=== PATIENT | male | born 1985 | race Hispanic/Latino ===

== ENCOUNTER 2025-08-05 13:01 | Emergency (ER) | payer SELFPAY ==
[2025-08-05 13:03] VITALS: BP 151/96
[2025-08-05 13:19] LABS: Hematocrit 45.4 % (39.0-52.0); Hemoglobin 15.5 g/dL (13.0-18.0); Mean Corp Hgb Conc. 34.1 g/dL (33.0-37.0); Mean Corpuscular Volume 81.1 fL (80.0-94.0); Nucleated Red Blood Cells % 0 % (-); Platelet Count 248 10^3/uL (130-400); Red Cell Dist. Width 14.2 % (11.5-14.5)
[2025-08-05 13:27] LABS: Urine Character Clear (Clear)
[2025-08-05 13:41] LABS: ALT (SGPT) 123 U/L (0-50); AST (SGOT) 62 U/L (17-59); Albumin 4.6 g/dl (3.5-5.0); Alkaline Phosphatase 112 U/L (38-126); Blood Urea Nitrogen 11 mg/dl (9-20); Calcium 8.8 mg/dl (8.4-10.2); Carbon Dioxide 24 mmol/L (22-30); Chloride 110 mmol/L (98-107); Glucose 125 mg/dl (70-99); Lipase 53 U/L (23-300); Potassium 3.9 mmol/L (3.5-5.1); Sodium 140 mmol/L (135-145); Total Protein 7.8 g/dl (6.3-8.2); eGFR > 60.00
[2025-08-05] MEDS: NSS 1000 IV (13:55)
[2025-08-05] MEDS: TORADOL 15 MG IV (13:56)
[2025-08-05 15:55] VITALS: BP 141/86
--- NOTE | 2025-08-05 17:04 | ED.GENMED ---
History of Present Illness
General
Chief Complaint: Abdominal Pain
Time Seen by Provider: 08/05/25 13:40
History of Present Illness
History of Present Illness:
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 Pain is constant, colicky, worsening since onset. No fevers or chills.
No history of abdominal surgery. Denies any lower urinary tract voiding symptoms
Past History
Past History
ED Past Medical History: None
ED Past Surgical History: None
Social History
Tobacco: Non-smoker
Alcohol: Occasional
Drug: None
Personal:
Living: with family
Employment: Employed
Family History
Family History: Other (Noncontributory)
Review of Systems
Review of Systems
Allergies reviewed?: Yes
All Other Systems: ROS reviewed and negative except as documented in HPI and ROS
Phy Exam
Physical Exam
Physical Exam:
GEN: Well appearing, NAD, WDWN
HEENT: Oral mucosa moist, no scleral icterus
Cardiac: Regular rate and rhythm, no murmurs
Lung: No respiratory distress, no tachypnea
Abdomen: Soft, focal tenderness to the right lower quadrant, no epigastric tenderness, no rigidity
MSK: No gross deformity or injuries
Skin: Good color, no pallor or jaundice, no rashes
Neuro: AO x3, moves all extremities freely
Psych: Calm, cooperative
Course
Orders/Labs/Results
Orders:
Orders
08/05/25 13:12
CMP [Comprehensive Metabolic Panel] Urgent
Complete Blood Count/With Diff Urgent
Lipase Urgent
Urinalysis Reflex To Culture Urgent
Date Specimen was Collected: 08/05/25
Time Specimen was Collected: 13:07
08/05/25 13:52
CT Abd/Pel (IV only)-DH only Urgent
Comment:
Reason For Exam: RLQ pain
0.9% Sodium Chloride 1000 ml [Nss] 1,000 ml IV BOLUS
Ketorolac [Toradol] 15 mg IV NOW STA
Abnormal Lab Results
08/05/25
13:12
Chloride 110 H mmol/L
(98-107)
Creatinine 0.6 L mg/dL
(0.7-1.3)
Glucose 125 H mg/dl
(70-99)
AST 62 H U/L
(17-59)
ALT 123 H U/L
(0-50)
08/05/25 13:12
08/05/25 13:12
Vital Signs
Initial and Last Documented VS:
Initial Vital Signs
Temp Pulse Resp BP Pulse Ox
98.5 F 85 17 151/96 99
08/05/25 13:03 08/05/25 13:03 08/05/25 13:03 08/05/25 13:03 08/05/25 13:03
Last Documented Vital Signs
Temp Pulse Resp BP Pulse Ox
98.5 F 71 16 138/87 99
08/05/25 13:03 08/05/25 17:22 08/05/25 17:22 08/05/25 17:22 08/05/25 17:22
MDM/Problems Addressed
MDM/Problems Addressed:
Patient's labs are reassuring, CT was obtained to evaluate for acute abdominal pathology such as appendicitis, this did not reveal any clearly acute abdominal pathology explaining his pain however it was noted that the patient had a mass lesion to
the right lumbar spine abutting the neural foramen. He has no lower extremity neurologic symptoms on exam, bilateral leg strength and sensation is intact no symptoms of spinal cord compression. He does report back pain. I did request an MRI
through the radiology department however this request was declined as the findings do not represent an emergent need. Unfortunately patient is uninsured and has no primary care with us and will need to follow-up with the [facility] for
failure. I discussed these results in great detail using professional interpretation via iPad I provided the patient with interpreted paper copies of his findings that will warrant follow-up care. He verbalized understanding at time of discharge
*Pulse Oximetry
SaO2: 99
Oxygen Mode of Delivery: Room air
Patient hypoxic: no
*Critical Care Note
Total Time (30-74mins, 75-104mins- exclusive of procedures): Not Applicable
ED Attending Note
-
Portions of this chart may have been created with voice recognition software.� Occasional wrong word or��sound alike� substitutions may have occurred due to the inherent limitations of voice recognition software.
Discharge Plan
Departure
Patient Disposition: Home (Routine Discharge)
Date of Disposition: 08/05/25
Time of Disposition: 17:15
Patient with high blood pressure during this ER visit?: Yes
Discharge Problem:
Abdominal pain, Mass of Lumbar Vetebrae
Instructions: Abdominal Pain
Prescriptions:
New
ondansetron 4 mg tablet,disintegrating
4 mg PO TIDPRN PRN (Reason: nausea/vomiting) Qty: 10 0RF
diclofenac sodium 75 mg tablet,delayed release (DR/EC)
75 mg PO BID PRN (Reason: Pain) Qty: 20 0RF
No Action
ondansetron 4 MG tablet,disintegrating
4 mg PO TIDPRN PRN (Reason: nausea) Qty: 15 0RF
Referrals:
NONE,* [Family Provider, Internal Medicine]
Activity Restrictions/Additional Instructions:
[facility]
[phone]
[address]
[place] [address]
Identificamos un crecimiento o masa anormal en la parte baja de medina [place]. No est� elen si esto est� causando medina dolor abdominal, janes probablemente le est� causando dolor lumbar. Lamentablemente, no pudimos aprobar erik resonancia magn�gian
urgente hoy; sin embargo, la necesitar� lo antes posible. Por favor, consulte con la [facility] hospital para obtener atenci�n m�dica y ellos podr�n ayudarle a coordinar pruebas adicionales para esta anomal�a. Si en alg�n momento presenta
entumecimiento o dolor intenso en las piernas o p�rdida de la funci�n urinaria, regrese a urgencias de inmediato.
Llame ma�garrick a la [facility] para solicitar erik jin.
Respecto a medina dolor abdominal, le recetar� antiinflamatorios y antin�useas. Por favor, roxy mucho l�quido. Medina tomograf�a computarizada no mostr� erik causa jaime.
Interventions
Interventions:
*Risk Screen - Suicide Last Done: 08/05/25 13:05
*General Assessment Last Done: 08/05/25 13:05
*Neglect/Abuse Screening Last Done: 08/05/25 13:05
*ED- Fall Risk Assessment Last Done: 08/05/25 13:29
*ED COVID-19 Vaccine History Last Done: 08/05/25 13:05
*ED Influenza Vaccine History Last Done: 08/05/25 13:05
*Nursing Disposition Last Done: 08/05/25 17:22
KN-Onexlu-Pwuexxcwsv Assessment Last Done: 08/05/25 13:29
Discharge Date and Time
Discharge Date/Time: 08/05/25 17:23
Print Language: GEORGIAN
[2025-08-05 17:22] VITALS: BP 138/87
== END 2025-08-05 17:23 | disposition home or self-care (01) ==
LOC: EMR 13:01
PROVIDERS: Student in an Organized Health Care Education/Training Program; EMERGENCY PHYSICIAN Emergency Medicine
DX: R10.31 Right lower quadrant pain (principal); Z59.71 Insufficient health insurance coverage
CPT/HCPCS: 99284; 96374; 96361; 74177; 80053; 81003; 83690; 85025; Q9967